=== PATIENT | female | born 1965 | race Caucasian/White ===

== ENCOUNTER 2016-11-08 16:11 | Observation (INO) | payer SELFPAY ==
[~2016-11-08] VITALS: Ht 154.9 cm; Wt 85.0 kg
[2016-11-08] VITALS (9 sets, daily range): BP systolic 123–175; BP diastolic 76–104; PULSE 74–102; RESP 16–20; TEMP 98.2; O2SAT 96–100
[~2016-11-08 16:11] MED LIST: TRAM50 PO
[2016-11-08] MEDS ORDERED: ASPIRIN 325 MG TAB PO ONE (16:45)
[2016-11-08] MEDS ORDERED: SODIUM CHLORIDE 0.9% FLUSH 5 ML FLUSH IVF PRN ×2 (16:45→18:30)
--- NOTE | 2016-11-08 16:47 | PD ---
HPI Chief Complaint: Chest Pain Time Seen by Provider: 16:35 Travel History International Travel<30 days: No (unknown) Contact w/Intl Traveler<30days: No (unknown) History of Present Illness HPI 51yo F with PMH of HTN presents to the ED with c/o left sided chest pain while she was working. 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 Chest pain resolved on its own after 10 days. Denies any fever, cough, vomiting, abdominal pain, focal numbness or weakness. Pt is a cig smoker. Denies any drug use including cocaine. Pt states she has not had recent cardiac work up and didnt really have this pain before. PFSH Past Medical History Diminished Hearing: No Musculoskeletal: Yes (BACK) Immunizations Current: Yes Tubal Ligation: Yes Social History Alcohol Use: No Tobacco Use: Yes (1 PPD) Substance Use: No Allergies-Medications (Allergen,Severity, Reaction): Coded Allergies: No Known Allergies (Unverified , 11/08/16) Reported Meds & Prescriptions Reported Meds & Active Scripts Active Reported [blood pressure med] Unknown Strength Unknown Dose PO DAILY Review of Systems Except as stated in HPI: all other systems reviewed are Neg Physical Exam Narrative GENERAL: 51yo F not in distress. SKIN: Warm and dry. HEAD: Atraumatic. Normocephalic. NECK: Trachea midline. No JVD. CARDIOVASCULAR: Regular rate and rhythm. No murmur appreciated. RESPIRATORY: No accessory muscle use. Clear to auscultation. Breath sounds equal bilaterally. CHEST WALL: Not ttp. GASTROINTESTINAL: Abdomen soft, non-tender, nondistended. No rebound tenderness or guarding. MUSCULOSKELETAL: No obvious deformities. No clubbing. No cyanosis. No edema. NEUROLOGICAL: Awake and alert. No obvious cranial nerve deficits. Motor grossly within normal limits. Normal speech. PSYCHIATRIC: Appropriate mood and affect; insight and judgment normal. Data Data Last Documented VS Vital Signs Date Time Temp Pulse Resp B/P Pulse Ox O2 Delivery O2 Flow Rate FiO2 11/08/16 18:30 16 99 Room Air 2 11/08/16 17:45 86 166/95 137/86 11/08/16 16:15 98.2 Orders Electrocardiogram (11/08/16 16:42) Basic Metabolic Panel (Bmp) (11/08/16 16:42) Ckmb (Isoenzyme) Profile (11/08/16 16:42) Complete Blood Count With Diff (11/08/16 16:42) Magnesium (Mg) (11/08/16 16:42) Prothrombin Time / Inr (Pt) (11/08/16 16:42) Act Partial Throm Time (Ptt) (11/08/16 16:42) Troponin I (11/08/16 16:42) Chest, Single Ap (11/08/16 16:42) Ecg Monitoring (11/08/16 16:42) Bilateral Bp Monitoring (11/08/16 16:42) Iv Access Insert/Monitor (11/08/16 16:42) Oximetry (11/08/16 16:42) Oxygen Administration (11/08/16 16:42) Aspirin (Aspirin) (11/08/16 16:45) Sodium Chloride 0.9% Flush (Ns Flush) (11/08/16 16:45) Sodium Chlor 0.9% 1000 Ml Inj (Ns 1000 M (11/08/16 17:45) Place In Observation (11/08/16 18:26) Activity Bed Rest With Brp (11/08/16 18:26) Vital Signs (Adult) Q4H (11/08/16 18:26) Cardiac Rhythm .As Directed (11/08/16 18:26) ^ Notify Dr: Other .PRN (11/08/16 18:26) ^ Notify Parameters (11/08/16 18:26) Resp Oxygen Nasal Cannula (11/08/16 ) ^ Obtain (11/08/16 18:26) Sodium Chloride 0.9% Flush (Ns Flush) (11/08/16 18:30) Sodium Chloride 0.9% Flush (Ns Flush) (11/08/16 21:00) Nitroglycerin Sl (Nitrostat Sl) (11/08/16 18:30) Lead Designer / Telemetry ONUR.Q8H (11/08/16 18:26) Admit Order (Ed Use Only) (11/08/16 18:29) Labs Laboratory Tests Test 11/08/16 16:35 White Blood Count 14.2 TH/MM3 Red Blood Count 5.33 MIL/MM3 Hemoglobin 15.8 GM/DL Hematocrit 48.0 % Mean Corpuscular Volume 90.1 FL Mean Corpuscular Hemoglobin 29.6 PG Mean Corpuscular Hemoglobin 32.8 % Concent Red Cell Distribution Width 14.0 % Platelet Count 299 TH/MM3 Mean Platelet Volume 8.5 FL Neutrophils (%) (Auto) 76.1 % Lymphocytes (%) (Auto) 15.4 % Monocytes (%) (Auto) 5.1 % Eosinophils (%) (Auto) 2.6 % Basophils (%) (Auto) 0.8 % Neutrophils # (Auto) 10.8 TH/MM3 Lymphocytes # (Auto) 2.2 TH/MM3 Monocytes # (Auto) 0.7 TH/MM3 Eosinophils # (Auto) 0.4 TH/MM3 Basophils # (Auto) 0.1 TH/MM3 CBC Comment DIFF FINAL Differential Comment Prothrombin Time 10.7 SEC Prothromb Time International 1.0 RATIO Ratio Activated Partial 29.2 SEC Thromboplast Time Sodium Level 140 MEQ/L Potassium Level 3.8 MEQ/L Chloride Level 105 MEQ/L Carbon Dioxide Level 24.8 MEQ/L Anion Gap 10 MEQ/L Blood Urea Nitrogen 10 MG/DL Creatinine 0.85 MG/DL Estimat Glomerular Filtration 71 ML/MIN Rate Random Glucose 94 MG/DL Calcium Level 8.7 MG/DL Magnesium Level 2.1 MG/DL Total Creatine Kinase 54 U/L Troponin I LESS THAN 0.02 NG/ML MDM Medical Decision Making Medical Screen Exam Complete: Yes Emergency Medical Condition: Yes Interpretation(s) EKG: Sinus tachycardia at 102bpm. Normal axis. TWI III. No ST segment elevation or depression. Laboratory Tests Test 11/08/16 16:35 White Blood Count 14.2 TH/MM3 (4.0-11.0) Red Blood Count 5.33 MIL/MM3 (4.00-5.30) Hemoglobin 15.8 GM/DL (11.6-15.3) Hematocrit 48.0 % (35.0-46.0) Mean Corpuscular Volume 90.1 FL (80.0-100.0) Mean Corpuscular Hemoglobin 29.6 PG (27.0-34.0) Mean Corpuscular Hemoglobin 32.8 % Concent (32.0-36.0) Red Cell Distribution Width 14.0 % (11.6-17.2) Platelet Count 299 TH/MM3 (150-450) Mean Platelet Volume 8.5 FL (7.0-11.0) Neutrophils (%) (Auto) 76.1 % (16.0-70.0) Lymphocytes (%) (Auto) 15.4 % (9.0-44.0) Monocytes (%) (Auto) 5.1 % (0.0-8.0) Eosinophils (%) (Auto) 2.6 % (0.0-4.0) Basophils (%) (Auto) 0.8 % (0.0-2.0) Neutrophils # (Auto) 10.8 TH/MM3 (1.8-7.7) Lymphocytes # (Auto) 2.2 TH/MM3 (1.0-4.8) Monocytes # (Auto) 0.7 TH/MM3 (0-0.9) Eosinophils # (Auto) 0.4 TH/MM3 (0-0.4) Basophils # (Auto) 0.1 TH/MM3 (0-0.2) CBC Comment DIFF FINAL Differential Comment Prothrombin Time 10.7 SEC (9.8-11.6) Prothromb Time International 1.0 RATIO Ratio Activated Partial 29.2 SEC Thromboplast Time (24.3-30.1) Sodium Level 140 MEQ/L (136-145) Potassium Level 3.8 MEQ/L (3.5-5.1) Chloride Level 105 MEQ/L (98-107) Carbon Dioxide Level 24.8 MEQ/L (21.0-32.0) Anion Gap 10 MEQ/L (5-15) Blood Urea Nitrogen 10 MG/DL (7-18) Creatinine 0.85 MG/DL (0.50-1.00) Estimat Glomerular Filtration 71 ML/MIN (>89) Rate Random Glucose 94 MG/DL (74-106) Calcium Level 8.7 MG/DL (8.5-10.1) Magnesium Level 2.1 MG/DL (1.5-2.5) Total Creatine Kinase 54 U/L (26-192) Troponin I LESS THAN 0.02 NG/ML (0.02-0.05) Last Impressions Chest X-Ray 11/08/16 1672 Signed Impressions: Service Date/Time: Tuesday, November 08, 2016 16:51 - CONCLUSION: Normal examination. Ranjan Burns MD Differential Diagnosis Musculoskeletal pain vs. ACS vs. pericarditis Narrative Course 51yo F here with left sided chest pain. Pt has some cardiac risk factors such as HTN, cig smoking and obesity. Labs reviewed, leukocytosis at 14.2. Pt states she just finished antibiotics for a UTI. H/H elevated at 15.8/48.0. Pt given NS IVF. Troponin negative. CXR showed normal examination. Pt given aspirin 325mg PO and reevaluated at bedside. She currently denies any chest pain. Pt has no PMD and has not had any cardiac work up. Discussed with pt plan to keep her for serial EKG and cardiac enzyme for low risk chest pain and she agrees. Discussed with Dr. Sheets and accepted to her service. Diagnosis Primary Impression: Chest pain Qualified Code: R07.9 - Chest pain, unspecified type Admitting Information Admitting Physician Requests: Observation Michelle Norton DO Nov 08, 2016 16:47 Michelle Norton DO Nov 08, 2016 16:47
--- NOTE | 2016-11-08 17:02 | RADHPO ---
EXAM DATE/TIME: 11/08/2016 16:51 [facility] COMPARISON: No previous studies available for comparison. INDICATIONS : Chest pain. MEDICAL HISTORY : None. SURGICAL HISTORY : None. ENCOUNTER: Initial ACUITY: 1 day PAIN SCORE: 5/10 LOCATION: Bilateral chest FINDINGS: A single view of the chest demonstrates the lungs to be symmetrically aerated without evidence of mas s, infiltrate or effusion. The cardiomediastinal contours are unremarkable. Osseous structures are intact. CONCLUSION: Normal examination. Ranjan Burns MD on November 08, 2016 at 17:00 Board Certified Radiologist. This report was verified electronically.
[2016-11-08 17:04] LABS: AUTOMATED NEUTROPHIL # 10.8 TH/MM3 (1.8-7.7); BASOPHIL # 0.1 TH/MM3 (0-0.2); BASOPHIL % 0.8 % (0.0-2.0); EOSINOPHIL # 0.4 TH/MM3 (0-0.4); EOSINOPHIL % 2.6 % (0.0-4.0); LYMPH % 15.4 % (9.0-44.0); LYMPHOCYTE # 2.2 TH/MM3 (1.0-4.8); MEAN CELL VOLUME 90.1 FL (80.0-100.0); MEAN CORPUSCULAR HEMOGLOBIN 29.6 PG (27.0-34.0); MEAN CORPUSCULAR HGB CONC 32.8 % (32.0-36.0); MONO % 5.1 % (0.0-8.0); NEUT % 76.1 % (16.0-70.0); PLATELET COUNT 299 TH/MM3 (150-450); RED BLOOD COUNT 5.33 MIL/MM3 (4.00-5.30); WHITE BLOOD COUNT 14.2 TH/MM3 (4.0-11.0)
[2016-11-08 17:07] LABS: HEMO FLAGS DIFF FINAL
[2016-11-08 17:13] LABS: CHLORIDE 105 MEQ/L (98-107); POTASSIUM 3.8 MEQ/L (3.5-5.1); SODIUM (NA) 140 MEQ/L (136-145)
[2016-11-08 17:16] LABS: ANION GAP 10 MEQ/L (5-15); BICARBONATE 24.8 MEQ/L (21.0-32.0); BLOOD UREA NITROGEN 10 MG/DL (7-18); MAGNESIUM 2.1 MG/DL (1.5-2.5)
[2016-11-08 17:18] LABS: APTT (PATIENT) 29.2 SEC (24.3-30.1); PROTHROMBIN TIME - PATIENT 10.7 SEC (9.8-11.6)
[2016-11-08 17:19] LABS: GLOMERULAR FILTRATION RATE 71 ML/MIN (>89)
[2016-11-08] MEDS ORDERED: blood pressure med PO (17:23)
[2016-11-08 17:31] LABS: CREATINE KINASE 54 U/L (26-192)
[2016-11-08] MEDS ORDERED: SODIUM CHLOR 0.9% 1000 ML INJ 1,000 ML IV ONE (17:45)
[2016-11-08] MEDS ORDERED: NITROGLYCERIN 0.4 MG SL 25 TABS/BTL SL PRN (18:30)
[2016-11-08] MEDS ORDERED: MORPHINE SULFATE 4 MG/ML INJ IV PRN (19:15)
[2016-11-08] MEDS ORDERED: ACETAMINOPHEN 500 MG CPLT PO PRN (19:15)
[2016-11-08] MEDS ORDERED: ACETAMINOPHEN/HYDROcodone 325 MG/7.5 MG TAB PO PRN (19:15)
[2016-11-08] MEDS ORDERED: ONDANSETRON HCL 4 MG/2 ML VIAL IV PRN (19:15)
[2016-11-08] MEDS ORDERED: cloNIDine HCL 0.1 MG TAB PO PRN (19:15)
[2016-11-08 20:12] LABS: CREATINE KINASE 51 U/L (26-192)
[2016-11-08] MEDS ORDERED: PANTOPRAZOLE SOD 40 MG DELAYED RELEASE TAB PO ONE (20:30)
[2016-11-08] MEDS: SODIUM CHLORIDE 0.9% FLUSH 5 ML FLUSH IVF SCH (21:00)
--- NOTE | 2016-11-08 22:32 | EKG ---
Date Performed: 11/08/2016 Time Performed: 19:08:54 PTAGE: 51 years EKG: Sinus rhythm Poor R wave progression PREVIOUS TRACING : 11/08/2016 16.16 Compared to prior tracing no significant change DOCTOR: Jean Claude Sams Interpretating Date/Time 11/08/2016 22:30:39
--- NOTE | 2016-11-08 22:49 | EKG ---
Date Performed: 11/08/2016 Time Performed: 16:16:06 PTAGE: 51 years EKG: Sinus tachycardia Normal ECG except for rate NO PREVIOUS TRACING DOCTOR: Jean Claude Sams Interpretating Date/Time 11/08/2016 22:48:20
[2016-11-08 22:58] LABS: CREATINE KINASE 161 U/L (26-192)
[2016-11-08 23:24] LABS: CKMB 0.6 NG/ML (0.5-3.6)
[2016-11-09] VITALS (9 sets, daily range): BP systolic 111–153; BP diastolic 70–89; PULSE 54–96; RESP 16–20; TEMP 97.6; O2SAT 92–98
[2016-11-09 05:27] LABS: AUTOMATED NEUTROPHIL # 8.5 TH/MM3 (1.8-7.7); BASOPHIL # 0.1 TH/MM3 (0-0.2); EOSINOPHIL # 0.6 TH/MM3 (0-0.4); EOSINOPHIL % 4.4 % (0.0-4.0); HEMO FLAGS DIFF FINAL; LYMPH % 25.3 % (9.0-44.0); LYMPHOCYTE # 3.4 TH/MM3 (1.0-4.8); MEAN CELL VOLUME 89.5 FL (80.0-100.0); MEAN CORPUSCULAR HEMOGLOBIN 30.3 PG (27.0-34.0); MEAN CORPUSCULAR HGB CONC 33.8 % (32.0-36.0); MONO % 5.5 % (0.0-8.0); NEUT % 63.8 % (16.0-70.0); PLATELET COUNT 282 TH/MM3 (150-450); RED BLOOD COUNT 5.03 MIL/MM3 (4.00-5.30); RED CELL DISTRIBUTION WIDTH 13.3 % (11.6-17.2); WHITE BLOOD COUNT 13.3 TH/MM3 (4.0-11.0)
--- NOTE | 2016-11-09 07:59 | HHI.HP ---
[facility] No Primary Care Physician Admission Diagnosis Chest pain Diagnoses: (1) Chest pain Diagnosis: Principal (2) HTN (hypertension) Diagnosis: Principal (3) Leukocytosis Diagnosis: Principal Chief Complaint: chest pain Travel History International Travel<30 Days: No Contact w/Intl Traveler <30 Da: No Traveled to Known Affected Are: No History of Present Illness 51-year-old female with history of hypertension and back and knee issues is admitted to chest pain center. 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 Denies any numbness, tingling, or radiation of pain to the neck/jaws/arms. The patient admits to having felt short of breath and nauseous. Admits to "barely " being diaphoretic and states she had some lightheadedness and dizziness at the time which has since resolved. The patient states that she had a charley horse over the ribs a couple of days ago and again over the right upper back and pain was similar. The patient states she got a tooth pulled last month and her blood pressure was 187/127 and she went to an urgent care for hypertension and was prescribed amlodipine 10 mg daily. She states she missed her dose of amlodipine yesterday and chest pain started one hour after she would've normally taken the medication. Denies VALLE. Patient admits to nasal congestion and a cough with little mucus production but attributes this to smoking although states family members have been sick recently. She denies any fevers or chills or pleuritic pain. She was recently treated for UTI a few weeks ago but denies any current dysuria or increased urinary frequency. She does admit to having acid reflux and takes Zantac for this. Denies abdominal pain or vomiting. She has not yet seen a GI physician/had endoscopy. The patient admits to experiencing chronic pain on and off over the entire back. Denies history of DVT or PE, hemoptysis, exogenous estrogen use, recent trauma/surgery/ hospitalization in the last 12 weeks, active cancer, recent immobilization of the legs, sedentary travel, or lower leg edema aside from knee joint swelling which is chronic. Review of Systems Constitutional: COMPLAINS OF: Diaphoretic episodes (equivocal), Dizziness, DENIES: Fever, Chills Eyes: DENIES: Blurred vision (no acute) Respiratory: COMPLAINS OF: Cough, Sputum production (minimal), Shortness of breath, DENIES: Hemoptysis Cardiovascular: COMPLAINS OF: Chest pain, DENIES: Lower Extremity Edema Gastrointestinal: COMPLAINS OF: Nausea, DENIES: Abdominal pain, Diarrhea, Vomiting Genitourinary: DENIES: Urinary frequency, Dysuria Musculoskeletal: COMPLAINS OF: Joint Swelling, Back pain (chronic) Integumentary: DENIES: Rash Neurologic: DENIES: Headache, Paresthesias ENT: positive nasal congestion Past Family Social History Past Medical History Hypertension Chronic knee issues, swelling; has had aspirations and injections Chronic back issues due to fall Past Surgical History Tubal ligation Reported Medications Amlodipine (Amlodipine Besylate) 10 Mg Tab 10 Mg PO DAILY Allergies: Coded Allergies: No Known Allergies (Unverified , 11/08/16) Family History Sister: PA at age 40. Mother: Still living at ~age 70; severe rheumatoid arthritis, leukemia. Father: in MVA at age 54. Social History Patient smokes one pack per day of cigarettes. She has started and stopped smoking several times but has been smoking for approximately 15 total years. Denies alcohol use. Physical Exam Vital Signs Vital Signs Date Time Temp Pulse Resp B/P Pulse Ox O2 Delivery O2 Flow Rate FiO2 11/09/16 07:18 58 16 141/77 92 Room Air 11/09/16 07:13 55 16 92 11/09/16 05:09 66 20 153/78 98 11/09/16 03:58 54 20 111/70 98 11/09/16 02:58 64 20 118/73 96 11/09/16 01:58 96 20 142/89 97 11/09/16 00:58 66 20 115/71 98 11/08/16 23:58 76 20 123/76 99 11/08/16 22:15 74 20 155/85 96 11/08/16 20:30 88 20 175/89 99 Room Air 11/08/16 19:59 20 98 11/08/16 19:30 86 20 146/86 100 Room Air 11/08/16 18:50 99 Nasal Cannula 2.00 11/08/16 18:30 16 99 Room Air 2 11/08/16 17:45 86 16 166/95 99 Room Air 137/86 11/08/16 16:45 94 16 152/93 100 Nasal Cannula 2 11/08/16 16:25 16 100 Nasal Cannula 2 11/08/16 16:25 100 Nasal Cannula 2 11/08/16 16:20 95 16 98 Room Air 11/08/16 16:15 98.2 102 16 174/104 98 Physical Exam GENERAL: This is a well-nourished, well-developed patient, in no apparent distress. SKIN: No rashes, ecchymoses or lesions. Warm and dry. HEAD: Atraumatic. Normocephalic. EYES: No scleral icterus. No injection or drainage. ENT: MMM. CHEST: No reproducible left sided chest wall tenderness. CARDIOVASCULAR: Regular rate and rhythm without murmurs, gallops, or rubs. RESPIRATORY: Clear to auscultation. Breath sounds equal bilaterally. No wheezes , rales, or rhonchi. GASTROINTESTINAL: Abdomen soft, non-tender, nondistended. No guarding. MUSCULOSKELETAL: No lower extremity edema bilaterally. No calf pain bilaterally. BACK: No CVA tenderness bilaterally. NEUROLOGICAL: Awake and alert. Motor grossly within normal limits. Five out of 5 muscle strength in bilateral quadriceps. Normal speech. Laboratory Laboratory Tests Test 11/08/16 11/08/16 11/08/16 11/09/16 16:35 19:37 22:35 05:15 White Blood Count 14.2 13.3 Red Blood Count 5.33 5.03 Hemoglobin 15.8 15.2 Hematocrit 48.0 45.0 Mean Corpuscular Volume 90.1 89.5 Mean Corpuscular Hemoglobin 29.6 30.3 Mean Corpuscular Hemoglobin 32.8 33.8 Concent Red Cell Distribution Width 14.0 13.3 Platelet Count 299 282 Mean Platelet Volume 8.5 8.0 Neutrophils (%) (Auto) 76.1 63.8 Lymphocytes (%) (Auto) 15.4 25.3 Monocytes (%) (Auto) 5.1 5.5 Eosinophils (%) (Auto) 2.6 4.4 Basophils (%) (Auto) 0.8 1.0 Neutrophils # (Auto) 10.8 8.5 Lymphocytes # (Auto) 2.2 3.4 Monocytes # (Auto) 0.7 0.7 Eosinophils # (Auto) 0.4 0.6 Basophils # (Auto) 0.1 0.1 CBC Comment DIFF FINAL DIFF FINAL Differential Comment Prothrombin Time 10.7 Prothromb Time International 1.0 Ratio Activated Partial 29.2 Thromboplast Time Sodium Level 140 Potassium Level 3.8 Chloride Level 105 Carbon Dioxide Level 24.8 Anion Gap 10 Blood Urea Nitrogen 10 Creatinine 0.85 Estimat Glomerular Filtration 71 Rate Random Glucose 94 Calcium Level 8.7 Magnesium Level 2.1 Total Creatine Kinase 54 51 161 Troponin I LESS THAN 0.02 LESS THAN 0.02 LESS THAN 0.02 Creatine Kinase MB 0.6 Result Diagram: 11/09/16 0515 11/08/16 1635 Imaging Last Impressions Chest X-Ray 11/08/16 1642 Signed Impressions: Service Date/Time: Sunday, November 08, 2016 16:51 - CONCLUSION: Normal examination. Ranjan Burns MD Assessment and Plan Assessment and Plan 51-year-old female with: Chest pain: Aching throbbing pain over left breast lasting 20 minutes yesterday with associated lightheadedness, dizziness, shortness of breath, and nausea. Patient has had recent muscle cramping over the ribs and back in the last couple of days and pain may have been similar. She additionally admits to some nasal congestion and a cough and states family members have been sick but states the cough may be due to smoking. She also did not take her blood pressure medication yesterday. Risk factors for cardiac disease include early family history of PA, tobacco use, and hypertension. Other differentials include chest pain due to hypertension, GERD, viral illness, muscle pain. EKGs 3 personally interpreted with sinus rhythm; isolated T-wave inversion in aVL but no evidence of ischemia. Troponin 3 less than 0.02. CK 3 normal. White blood cell count 14.2-->13.3. Neutrophils were only mildly elevated yesterday and are within normal limits today. May be attributed to viral illness or stress reaction. Chest x-ray personally interpreted without acute disease. Electrolytes within normal limits. -325 mg daily aspirin -Nitro/[place]/Morphine prn for pain -Zofran prn nausea -Telemetry -Patient is not an appropriate candidate for an ETT due to chronic back and knee issues. Nuclear stress test has been ordered. Hypertension: Patient recently started on amlodipine by urgent care physician a couple of weeks ago. Patient's blood pressure elevated at 174/104 on arrival. Patient received one dose of clonidine 0.1 mg last night and blood pressure is improved this morning. HTN likely attributed to missing her dose of amlodipine yesterday. -Continue Amlodipine 10 mg po daily GERD: Patient admits to acid reflux every day. She takes Zantac for relief. -Patient advised that she can take Zantac for preventative as well as alleviating purposes and should take it every day not just when she has symptoms -Patient will be on Protonix 40 mg by mouth daily while hospitalized for prophylaxis. Maalox as needed. -Patient advised to follow up with GI outpatient for endoscopy. -Advised to avoid food triggers Tobacco use: Patient was counseled risks of smoking. She is advised that nicotine aggravates GERD. DVT prevention: SCDs. Telemetry reviewed with artifact. Myocardial perfusion scan normal with normal EF. Patient informed of results. Advised to quit smoking. Advised of low salt diet. Discharge disposition: Home in good condition. Diet: Heart healthy, GERD. Activity: Regular Medications: Continue Amlodipine, Zantac. Follow-up: Case management has set patient up for appointment with Dr. Orozco on 11/23/16. Patient provided with blue card. Discussed Condition With patient Problem Qualifiers (1) Chest pain: Qualified Code: R07.9 - Chest pain, unspecified type Dafne Strong Nov 09, 2016 07:59
[2016-11-09] MEDS ORDERED: PANTOPRAZOLE SOD 40 MG DELAYED RELEASE TAB PO SCH (09:00)
[2016-11-09] MEDS: SODIUM CHLORIDE 0.9% FLUSH 5 ML FLUSH IVF SCH (09:00)
[2016-11-09] MEDS ORDERED: AMLO10TA2 PO (09:00)
[2016-11-09 09:16] LABS: BETA HCG QUANT LESS THAN 1 MIU/ML (0-5)
[2016-11-09] MEDS ORDERED: ALUMINUM/MAGNESIUM/SIMETH 30 ML CUP PO PRN (09:45)
[2016-11-09] MEDS ORDERED: REGADENOSON INJ 0.4 MG/5 ML SYR IV ONE (16:00)
--- NOTE | 2016-11-09 16:44 | RADHPO ---
EXAM DATE/TIME: 11/09/2016 15:26 [facility] COMPARISON: CHEST SINGLE AP, November 08, 2016, 16:51. INDICATIONS : Mid chest pain with shortness of breath and nausea for one day. Unable to walk on treadmill. DOSE: 26.7 mCi Tc99m Myoview at stress. 8.7 mCi Tc99m Myoview at rest. 0.4 mg Lexiscan STRESS SYMPTOMS: Shortness of breath and flush. EJECTION FRACTION: 54% MEDICAL HISTORY : Hypertension. SURGICAL HISTORY : Tubal ligation. ENCOUNTER: Initial ACUITY: 1 day PAIN SCALE: 7/10 LOCATION: Midsternal chest TECHNIQUE: The patient underwent pharmacologic stress with infusion of prescribed dose. Continuous ECG tracing was monitored during stress. Gated SPECT imaging was performed after stress and conventional SPECT i maging was performed at rest. The examination was performed on a SPECT/CT scanner, both attenuation and non-corrected datasets were reviewed. FINDINGS: DISTRIBUTION: The maximum perfused segment at stress is in the inferior lateral wall. PERFUSION STUDY: The pattern of perfusion at stress is within normal limits. No fixed or reversible perfusion defect i s identified. GATED STUDY: There is intact wall motion and thickening without hypokinetic or dyskinetic segments. CONCLUSION: 1. No left ventricle perfusion abnormality is identified. There is no fixed or reversible perfusion d efect identified. 2. There is normal left ventricle wall motion with a calculated ejection fraction of 54%. RISK CATEGORY: Low (<1% Annual Mortality Rate) Josue Murcia MD on November 09, 2016 at 16:40 Board Certified Radiologist. This report was verified electronically.
--- NOTE | 2016-11-09 17:18 | HHI.DCPOC ---
Discharge Care Plan Diagnosis: (1) Chest pain (2) HTN (hypertension) (3) Leukocytosis Your Health Problems Are: Chest Pain Goals to Promote Your Health * To prevent worsening of your condition and complications * To maintain your health at the optimal level Directions to Meet Your Goals Take your medications as prescribed Follow your dietary instruction Follow activity as directed Keep your appointments as scheduled Take your immunizations and boosters as scheduled If your symptoms worsen call your PCP, if no PCP go to Urgent Care Center or Emergency Room Smoking is Dangerous to Your Health. Avoid second hand smoke Call the 24-hour hour crisis hotline for domestic abuse at Daf[place] Strong Nov 09, 2016 17:18
--- NOTE | 2016-11-09 19:47 | TR ---
Date Performed: 11/09/2016 Time Performed: 15:34:26 DOCTOR: Salma Davidson DRUG LIST: CLINICAL HISTORY: CHEST PAIN REASON FOR TEST: REASON FOR ENDING: OBSERVATION: CONCLUSION: Lexiscan stress test was performed under standard four minute protocol. [place] e was injected one minute prior to ending the test. No electrocardiographic abormalities were present to suggest ischemia. Nuclear imaging and interpretation are pending. COMMENTS:
--- NOTE | 2016-11-09 19:50 | EKG ---
Date Performed: 11/08/2016 Time Performed: 22:36:18 PTAGE: 51 years EKG: Sinus rhythm Possible septal infarct - age undetermined Abnormal ECG PREVIOUS TRACING : 11/08/2016 22.35 Compared to prior tracing no significant change DOCTOR: Jean Claude Sams Interpretating Date/Time 11/09/2016 19:48:22
[2016-11-10] MEDS ORDERED: INFLUENZA VIRUS VACCINE (QUADRIVALENT) 0.5 ML SYR IM ONE (10:00)
[2016-11-10] MEDS ORDERED: PNEUMOCOCCAL POLYVALENT INJ 25 MCG/0.5 ML SYR IM ONE (10:00)
[2016-11-24] MEDS ORDERED: RANI150T PO (10:48)
[2016-11-24] MEDS ORDERED: HYDR-3516 PO (10:48)
[2016-11-24] MEDS ORDERED: AMLO10TA2 PO (11:13)
== END 2016-11-09 18:53 | disposition home or self-care (01) ==
LOC: PHED 16:11 → PHEDA 18:30 → PHEDH 22:30 → PH3A 11-09 08:12
PROVIDERS: ADMIT Hospitalist; ATTEND Hospitalist
DX: R07.9 Chest pain, unspecified (principal); R11.0 Nausea; R06.02 Shortness of breath; F17.210 Nicotine dependence, cigarettes, uncomplicated; R00.0 Tachycardia, unspecified; I10 Essential (primary) hypertension; E66.9 Obesity, unspecified; R61 Generalized hyperhidrosis; R42 Dizziness and giddiness; R05 Cough; R09.81 Nasal congestion; K21.9 Gastro-esophageal reflux disease without esophagitis
CPT/HCPCS: 71010; 78452; 80048; 82550; 82552; 83735; 84484; 84702; 85025; 85610; 85730; 93005; 93017; 96360; 99285; A9502; G0378; J2270; J2785; J7030